=== PATIENT | female | born 1945 | race Caucasian/White ===

== ENCOUNTER → 2017-07-04 | Outpatient (CLI) | payer MEDICARE ==
[2017-07-04 11:08] LABS: BLOOD GAS CARBOXYHEMOGLOBIN 1.4 % (0-4); BLOOD GAS HCO3 21 mmol/L (22-26); BLOOD GAS METHEMOGLOBIN 1.1 % (0-2); BLOOD GAS O2 HGB SATURATION 96 % (90-100); BLOOD GAS OXYGEN CONTENT 15.6 Vol % (12.0-20.0); BLOOD GAS PCO2 29 mmHg (38-42); BLOOD GAS PO2 114 mmHg (61-120); BLOOD GAS TOTAL HGB 11.4 G/DL (12.0-16.0); CRITICAL VALUE NO; DRAW SITE RT RADIAL; FIO2 21 %; NUMBER OF ARTERIAL PUNCTURES 1; STAT NO; TEMP CORR TO 98.6; ULNAR PULSE PRESENT
--- NOTE | 2017-07-08 11:16 | RSPPFT ---
DATE OF PROCEDURE: 07/04/17 COMMENTS: VOLUMES DYNAMIC: FVC and FEV1 mildly reduced. STATIC; RV, FRC and TLC normal. FLOWS: FEV1% normal; FEF 25-75 mildly reduced. DIFFUSION: Moderately reduced. FLOW VOLUME LOOP: Terminal airflow obstruction. IMPRESSION: Mild obstructive ventilator defect with no improvement post-bronchodilator. There is increased airways resistance and mildly to moderately reduced diffusion. Clinical correlation is required.
== END ==
LOC: HRSP 10:01
PROVIDERS: ATTEND Family Medicine
DX: R05 Cough (principal)
CPT/HCPCS: 36600; 82805; 94060; 94726; 94729

== ENCOUNTER → 2018-03-31 | Outpatient (CLI) | payer MEDICARE | LOC: PLAB 13:24 | PROVIDERS: ATTEND Internal Medicine | DX: R05 Cough (principal) | CPT/HCPCS: 87015; 87070; 87116; 87205; 87206 ==